=== PATIENT | male | born 1960 | race Caucasian/White ===

== ENCOUNTER 2020-04-12 09:13 | Outpatient (REF) | payer MEDICARE, MEDICAID, SELFPAY ==
[2020-04-12 10:53] LABS: Anion Gap 14 (12-20); Blood Urea Nitrogen 16 mg/dL (9-16); Carbon Dioxide 25 mmol/L (22-29); Chloride 106 mmol/L (96-108); Estimated Glomerular Filt Rate > 60; Potassium 4.7 mmol/l (3.3-5.1); Sodium 140 mmol/L (135-145)
== END 2020-04-12 09:14 | disposition home or self-care (01) ==
LOC: HO.10HDL 09:13
PROVIDERS: Visit Provider Internal Medicine Hypertension Specialist
DX: N25.89 Other disorders resulting from impaired renal tubular function (principal)
CPT/HCPCS: 80051; 82565; 84520

== ENCOUNTER 2021-01-22 08:40 | Outpatient (REF) | payer MEDICARE, MEDICAID, SELFPAY ==
[2021-01-22 10:39] LABS: Anion Gap 15 (12-20); Blood Urea Nitrogen 14 mg/dL (9-16); Calcium 9.9 mg/dL (8.4-10.2); Carbon Dioxide 26 mmol/L (22-29); Chloride 106 mmol/L (96-108); Estimated Glomerular Filt Rate > 60; Potassium 4.6 mmol/L (3.3-5.1); Sodium 142 mmol/L (135-145)
== END 2021-01-22 08:41 | disposition home or self-care (01) ==
LOC: HO.10HDL 08:40
PROVIDERS: PCP Internal Medicine; Visit Provider Internal Medicine Hypertension Specialist
DX: N25.89 Other disorders resulting from impaired renal tubular function (principal)
CPT/HCPCS: 36415; 80051; 82310; 82565; 84520

== ENCOUNTER 2021-02-18 10:30 | Outpatient (REF) | payer MEDICARE, MEDICAID, SELFPAY ==
[2021-02-18 14:08] LABS: Anion Gap 18 (12-20); Blood Urea Nitrogen 12 mg/dL (9-16); Calcium 9.9 mg/dL (8.4-10.2); Carbon Dioxide 21 mmol/L (22-29); Chloride 105 mmol/L (96-108); Estimated Glomerular Filt Rate > 60; Potassium 4.9 mmol/L (3.3-5.1); Sodium 139 mmol/L (135-145)
== END 2021-02-18 10:31 | disposition home or self-care (01) ==
LOC: HO.10HDL 10:30
PROVIDERS: Visit Provider Internal Medicine Hypertension Specialist
DX: N25.89 Other disorders resulting from impaired renal tubular function (principal)
CPT/HCPCS: 36415; 80051; 82310; 82565; 84520

== ENCOUNTER 2022-07-31 12:14 | Outpatient (REF) | payer MEDICARE, MEDICAID, SELFPAY ==
[2022-07-31 12:33] LABS: MANUAL DIFF FLAG NO
[2022-07-31 13:09] LABS: Basophils Absolute Auto 0.1 X10*3/uL (0.0-0.2); Basophils Percent Auto 0.8 % (0-2); Eosinophils Absolute Auto 0.1 X10*3/uL (0.0-0.4); Eosinophils Percent Auto 1.4 % (0-4); Hematocrit 48.9 % (42.0-52.0); Hemoglobin 16.9 g/dl (14.0-18.0); Imm Gran Abs Auto 0.03 X10*3/uL (0.00-0.03); Imm Gran Pct Auto 0.4 % (0.0-0.4); Lymphocytes Absolute Auto 2.9 X10*3/uL (1.2-4.9); Lymphocytes Percent Auto 34.2 % (20-40); Mean Corpuscular HGB Conc 34.6 g/dl (31.0-36.0); Mean Corpuscular Hemoglobin 33.6 pg (27.0-33.0); Mean Corpuscular Volume 97.2 fL (80.0-98.0); Mean Platelet Volume 8.8 fL (9.4-12.4); Monocytes Absolute Auto 0.9 X10*3/uL (0.1-1.2); Neutrophils Absolute Auto 4.4 x10*3/uL (2.0-8.3); Neutrophils Percent Auto 52.2 % (45-73); Platelet Count 264 X10*3/uL (160-400); Red Blood Count 5.03 X10*6/uL (4.60-5.80); Red Cell Distribution Width 12.5 % (11.0-16.0); White Blood Count 8.4 X10*3/uL (4.8-10.8)
[2022-07-31 13:14] LABS: Appearance Urine Clear; Color Urine Yellow; Glucose Urine UA Negative (Negative); Leukocyte Esterase Urine Negative (Negative); Nitrite Urine Negative (Negative); PH 5.5 (5.0-9.0); UMIC TRIGGER UA YES; Urine Blood Small (1+) (Negative); Urine Ketones Trace mg/dL (Negative); Urine Protein Negative (Neg-Trace)
[2022-07-31 13:39] LABS: Alanine Aminotransferase 27 U/L (0-40); Alkaline Phosphatase 128 U/L (39-117); Anion Gap 18 (12-20); Aspartate Amino Transferase 39 U/L (5-37); Bilirubin Total 0.5 mg/dL (0.0-1.0); Blood Urea Nitrogen 21 mg/dL (9-16); Calcium 10.3 mg/dL (8.4-10.2); Carbon Dioxide 25 mmol/L (22-29); Chloride 107 mmol/L (96-108); Estimated Glomerular Filt Rate 55; Glucose Random 112 mg/dL (60-115); Potassium 5.7 mmol/L (3.3-5.1); Sodium 144 mmol/L (135-145); Total Protein 7.8 g/dL (6.5-8.0)
[2022-07-31 14:42] LABS: Bacteria Urine None Seen (None Seen); Hyaline Casts Urine 0-2 /LPF (0-2); Squamous Epithelial Cell Urine 0-2 /HPF (0-2); WBC Urine 0-5 /HPF (0-5)
== END 2022-07-31 12:15 | disposition home or self-care (01) ==
LOC: HO.LAB 12:14
PROVIDERS: PCP Internal Medicine; Visit Provider Internal Medicine Hypertension Specialist
DX: N25.89 Other disorders resulting from impaired renal tubular function (principal)
CPT/HCPCS: 36415; 80053; 81001; 85025